=== PATIENT | female | born 1985 | race Caucasian/White ===

== ENCOUNTER 2016-07-29 06:24 | Emergency (ER) | payer OTHER ==
[~2016-07-29] VITALS: Ht 172.7 cm; Wt 94.2 kg
[~2016-07-29 06:24] MED LIST: BACTRIM,SEPT1 TABLET PO; NORCO 5/3251 TABLET PO; ZOFRAN ODT4 MG PO
[2016-07-29] MEDS ORDERED: PERCOCET 5/31 TABLET PO (09:22)
[2016-07-29] MEDS ORDERED: FLEXERIL10 MG PO (09:22)
[2016-07-29 09:44] VITALS: BP 132/77
== END 2016-07-29 09:45 | disposition home or self-care (01) ==
LOC: EME 06:24
DX: S70.01XA Contusion of right hip, initial encounter (principal); S80.01XA Contusion of right knee, initial encounter; W01.0XXA Fall on same level from slipping, tripping and stumbling without subsequent striking against object, initial encounter; Z87.442 Personal history of urinary calculi
CPT/HCPCS: 73502; 73552; 73564; 99281; 99284

== ENCOUNTER 2018-01-10 03:24 | Outpatient (CLI) | payer OTHER ==
[~2018-01-10 03:24] MED LIST changes: +FLEXERIL10 MG PO; +PERCOCET 5/31 TABLET PO
[2018-01-10 03:45] VITALS: BP 124/85
[2018-01-10 04:50] LABS: BASOPHIL (%) 0.4 % (0-1); EOSINOPHIL (%) 1.3 % (0-5); EOSINOPHIL COUNT 0.1 K/uL (0-0.3); HEMATOCRIT 34.4 % (36.0-46.0); HEMOGLOBIN 11.5 G/DL (11.9-15.5); IMMATURE GRANULOCYTE (%) 0.7 % (0.0-0.7); LYMPHOCYTE (%) 16.3 % (15-42); LYMPHOCYTE COUNT 1.8 K/uL (1.0-2.8); MCH 29.6 PG (29.0-34.0); MCHC 33.4 G/DL (30.0-36.0); MCV 88.7 FL (83-99); MONOCYTE (%) 5.3 % (3-12); MONOCYTE COUNT 0.6 K/uL (0-0.8); NEUTROPHIL COUNT 8.2 K/uL (1.8-6.4); PLATELET COUNT 354 K/uL (156-360); RBC DIS.WIDTH-CV 13.2 % (11.8-14.6); RBC DIS.WIDTH-SD 42.8 % (39-53); RED BLOOD COUNT 3.88 M/uL (3.80-5.20); WHITE BLOOD COUNT 10.8 K/uL (4.1-10.2)
[2018-01-10 04:58] LABS: ALBUMIN 3.6 g/dL (3.2-4.8); CHLORIDE 107 mEq/L (99-109); POTASSIUM 3.6 mEq/L (3.7-5.4); SODIUM 138 mEq/L (136-147)
[2018-01-10 05:00] LABS: GLUCOSE 88 mg/dL (70-99)
[2018-01-10 05:01] LABS: TOTAL PROTEIN 6.4 g/dL (6.4-8.3)
[2018-01-10 05:02] LABS: TOTAL BILIRUBIN 0.3 mg/dL (0.0-1.0)
[2018-01-10 05:04] LABS: ALKALINE PHOSPHATASE 112 IU/L (3-129); CREATININE 0.7 mg/dL (0.6-1.3); GFR ESTIMATE (CALCULATED) > 59 mL/min/
[2018-01-10 05:05] LABS: UREA NITROGEN (BUN) 5 mg/dL (9-23)
[2018-01-10 05:06] LABS: AST (GOT) 22 IU/L (2-34)
[2018-01-10 05:07] LABS: ALT (GPT) 21 IU/L (3-49)
[2018-01-10 06:01] LABS: SOURCE URINE
[2018-01-10 06:09] LABS: APPEARANCE TURBID ((CLEAR)); BILIRUBIN NEGATIVE; BLOOD NEGATIVE; COLOR AMBER ((YELLOW)); GLUCOSE (STRIP) NEGATIVE; KETONES 5; LEUKOCYTES SMALL; NITRITE NEGATIVE; PROTEIN (STRIP) 30; SPECIFIC GRAVITY 1.026 (1.000-1.030); UROBILINOGEN 0.2 MG/DL (0.2-1.0)
[2018-01-10 06:23] LABS: EPITHELIAL CELLS 3+ /HPF; MUCUS NONE SEEN /LPF; RED BLOOD CELLS NONE SEEN /HPF (0-5)
[2018-01-10 06:24] LABS: AMORPHOUS URATES CRYSTALS 4+; BACTERIA NONE SEEN /HPF
[2018-01-10 06:25] LABS: AMPHETAMINE NEGATIVE (500 ng/mL); BARBITURATES NEGATIVE (200 ng/mL); BENZODIAZEPINES NEGATIVE (150 ng/mL); BUPRENORPHINE NEGATIVE (10 ng/mL); COCAINE NEGATIVE (150 ng/mL); METHADONE NEGATIVE (200 ng/mL); METHAMPHETAMINE NEGATIVE (500 ng/mL); OPIATES (MORPHINE) NEGATIVE (100 ng/mL); OXYCODONE NEGATIVE (100 ng/mL); PHENCYCLIDINE NEGATIVE (25 ng/mL); PROPOXYPHENE NEGATIVE (300 ng/mL); THC CANNABINOIDS NEGATIVE (50 ng/mL); TRICYCLIC ANTIDEPRESSANTS NEGATIVE (300 ng/mL)
[2018-01-10 07:01] VITALS: BP 121/75
[2018-01-10 09:26] VITALS: BP 123/74
[2018-01-10] MEDS ORDERED: PRENATAL TABLE1 EAC3 PO (10:21)
[2018-01-10] MEDS ORDERED: GUMMI BEAR MUL1 EACH PO (10:22)
[2018-01-10] MEDS ORDERED: UNISOM SLEEP AI25 MG PO (10:23)
[2018-01-10] MEDS ORDERED: VALACYCLOVIR1000 MG PO (10:24)
[2018-01-10 18:25] LABS: CANDIDA DNA PROBE NEGATIVE; GARDNERELLA DNA PROBE NEGATIVE; TRICHOMONAS DNA PROBE NEGATIVE
[2018-01-12 12:41] LABS: CHLAMYDIA TRACHOMATIS NEGATIVE; NEISSERIA GONORRHOEAE NEGATIVE
== END 2018-01-10 10:34 | disposition home or self-care (01) ==
LOC: LDRP-OP 03:24 → 2WEST 03:25
PROVIDERS: Obstetrics & Gynecology
DX: O99.283 Endocrine, nutritional and metabolic diseases complicating pregnancy, third trimester (principal); E86.0 Dehydration; O26.893 Other specified pregnancy related conditions, third trimester; Z3A.29 29 weeks gestation of pregnancy; M54.9 Dorsalgia, unspecified
CPT/HCPCS: 59025; 76805; 80053; 81003; 85025; 87086; 87480; 87491; 87510; 87591; 87660; G0378; J2405; J7120